=== PATIENT | female | born 1955 | race Hispanic/Latino ===

== ENCOUNTER 2020-03-09 16:33 | Emergency (ER) | payer MEDICARE ==
[~2020-03-09 16:33] MED LIST: 0.9% SODIUM CHLORIDE 1000 ML IV BAG IV ONE; 0.9% SODIUM CHLORIDE 500 ML IV BAG IV ONE
[2020-03-09 17:19] LABS: BASOPHILS % (AUTO) 0.2 % (0.0-5.0); EOSINOPHILS % (AUTO) 0.5 % (0.0-8.0); HEMATOCRIT 42.9 % (36-48); LYMPHOCYTES % (AUTO) 24.9 % (21.0-51.0); MEAN CORPUSCULAR HGB CONC 32.9 g/dL (32.0-36.0); MEAN CORPUSCULAR VOLUME 85.3 fL (79-99); MONOCYTES % (AUTO) 5.7 % (3.0-13.0); NEUTROPHILS % (AUTO) 68.4 % (40.0-77.0); PLATELET COUNT (AUTO) 307 K/uL (130-400); RED BLOOD CELL COUNT(AUTO) 5.03 MIL/uL (4.00-5.50); RED CELL DISTRIBUTION WIDTH 12.8 % (11.0-15.5); WHITE BLOOD COUNT (AUTO) 10.1 K/uL (4.8-10.8)
[2020-03-09 17:21] LABS: APPEARANCE,URINE Cloudy (CLEAR); BILIRUBIN,URINE Negative (NEGATIVE); COLOR,URINE Yellow (YELLOW); GLUCOSE, URINE (UA) 500 mg/dL (NEGATIVE); KETONES,URINE Trace mg/dL (NEGATIVE); LEUKOCYTE ESTERASE ,URINE Trace (NEGATIVE); NITRATE,URINE Negative (NEGATIVE); OCCULT BLOOD,URINE Negative (NEGATIVE); PROTEIN,URINE POS 2+ mg/dL (NEGATIVE)
[2020-03-09 17:30] LABS: POTASSIUM 3.7 mmol/L (3.5-5.1); RBC,URINE 0-1 /HPF (0-1)
[2020-03-09 17:32] LABS: BACTERIA,URINE Few /HPF (None Seen); SQUAMOUS EPITHELIAL CELL,UR Moderate /HPF (0-2)
[2020-03-09 17:44] LABS: ALBUMIN 4.2 g/dL (3.5-5.0); BILIRUBIN,TOTAL 0.5 mg/dL (0.2-1.0); TOTAL PROTEIN, SERUM 8.5 g/dL (6.0-8.3)
[2020-03-09] MEDS ORDERED: ONDANSETRON HCL 4 MG/2 ML VIAL ONE (18:01)
[2020-03-09 18:07] LABS: AMYLASE 68 U/L (25-115); CREATINE KINASE, TOTAL 73 U/L (21-232); LIPASE 246 U/L (114-286); TROPONIN I < 0.04 ng/mL (0.00-0.06)
[2020-03-09] MEDS ORDERED: KETOROLAC TROMETHAMINE 30MG/ML ONE (18:20)
[2020-03-09 18:26] LABS: MYOGLOBIN 37 ng/mL (10-92)
[2020-03-09] MEDS ORDERED: MORPHINE SULFATE 2 MG/ML 1ML SYG ONE ×2 (19:30→20:05)
[2020-03-09] MEDS ORDERED: TAMSULOSIN HCL 0.4 MG CAP.ER.24H ONE (19:47)
== END 2020-03-09 20:40 | disposition home or self-care (01) ==
LOC: EDH 16:33
DX: N20.1 Calculus of ureter (principal); E11.40 Type 2 diabetes mellitus with diabetic neuropathy, unspecified; R11.2 Nausea with vomiting, unspecified; I10 Essential (primary) hypertension; M19.90 Unspecified osteoarthritis, unspecified site; E78.00 Pure hypercholesterolemia, unspecified; Z90.710 Acquired absence of both cervix and uterus
CPT/HCPCS: 74176; 36415; 71045; 80053; 81001; 82150; 82550; 83690; 83874; 84484; 85025; 87040; 93005; 96361; 96374; 96375; 96376; 99285; J1885; J2405; J7030; J7040